=== PATIENT | female | born 1955 | race Caucasian/White ===

== ENCOUNTER 2017-01-13 14:56 | Day surgery (SDC) | payer BC ==
[2017-01-07 16:51] LABS: HEMATOCRIT 38.7 % (36.0-48.0); HEMOGLOBIN 12.8 g/dL (12.0-16.0)
[2017-01-07 17:11] LABS: BUN (BLOOD UREA NITROGEN) 16 MG/DL (6-23); CALCIUM, SERUM 8.9 MG/DL (8.5-10.4); CHLORIDE, SERUM 103 MMOL/L (96-112); CO2 (CARBON DIOXIDE) 29 MMOL/L (24-34); CREATININE 0.88 MG/DL (0.55-1.02); GFR AFRICAN AMERICAN 83 ML/MIN (>=60); GFR NON AFRICAN AMERICAN 72 ML/MIN (>=60); GLUCOSE, SERUM 92 MG/DL (60-99); POTASSIUM, SERUM 4.5 MMOL/L (3.5-5.3); SODIUM, SERUM 140 MMOL/L (135-148)
--- NOTE | ~2017-01-13 | OP ---
Record Of Operation [facility] [address] [place]. [address] NAME: DEMARIO BRADLEY : 59 STATUS : [facility] [place] PAT#: [id number] AGE: 61 ADM/REG DATE : 01/13/17 MR#: [id number] REPORT SERV DATE: 01/14/17 DICTATED BY: ANDRAE RODARTE DATE: 01/13/17 REPORT STATUS : Draft TRANSCRIBED BY: MODChetan DATE: 01/13/17 DATE OF PROCEDURE: 01/13/2017 SURGEON: Andrae Rodarte M.D. [employer] NEUROPSYCHOLOGIST: Alfonso. [employer]: Martha Smyth. PREPROCEDURE DIAGNOSIS: Fecal incontinence. POSTPROCEDURE DIAGNOSIS: Fecal incontinence. PROCEDURE: InterStim Percutaneous nerve stimulator. INDICATIONS: Gas, liquid, and solid stool. DESCRIPTION OF PROCEDURE: The patient was properly identified, placed in the prone position per OR protocol. General anesthesia was administered. Pillows were placed under the lower abdomen to flatten the sacrum and under the shins to allow the toes to dangle freely. The grounding pad with red lead was attached to the patient's heel on the patient's right side. The patient was prepped and draped in the usual sterile fashion using Hibiclens and ChloraPrep solution. The C-arm was draped and moved into the AP position to provide fluoroscopic mapping of the sacral region which included marking out of the midline of the sacrum, SI joints, sciatic notches, medial foraminal borders, and the sacral foramina. The C-arm was moved into the lateral position to image the sacrum. Sacral promontory to the coccyx. Local injection of a 1:1 mixture of 1% lidocaine and 0.25% Marcaine with epinephrine was administered. A 3.5 cm foramen needle was introduced approximately 2 cm above the sciatic notch and 2 cm lateral to the sacral midline filling for the foraminal margins until the S3 foramen was identified and penetrated on the right side. The depth of the needle was confirmed and adjusted fluoroscopically. Proper needle position was confirmed by a direct observation of lifting of the perineum or Héctor, and observation of plantar flexion of the great using the external test stimulator. This was also tried on the patient's right side. The best result was actually on the patient's left, so the foramen needle stylet was removed and a directional wire guide was placed confirmed fluoroscopically with the bead at the anterior plane of the sacral bone. The foramen needle was removed. An incision was made peripherally to the directional guidewire through the fascial layer. The lead introducer sheath with dilator was placed over the directional guidewire and directed into the foramen ensuring the radiopaque marker of the lead introducer, was not extended beyond the anterior edge of the sacrum. The dilator was unlocked and removed along with the directional guidewire. The lead was then placed through the introducer sheath past the first white marker, but not past the second. The position was checked fluoroscopically. The lead was then further introduced until three electrodes were visible below the sacrum. Each electrode was tested for location by and visualization of the Héctor and plantar flexion of the great toe. After satisfactory positioning was confirmed, the introducer sheath was retracted with the wire under continuous fluoro deploying the lead tines into the Record Of Operation [address] [place]. [address] NAME: DEMARIO BRADLEY : 59 STATUS : [facility] [place] PAT#: [id number] AGE: 61 ADM/REG DATE : 01/13/17 MR#: [id number] REPORT SERV DATE: 01/14/17 DICTATED BY: ANDRAE RODARTE DATE: 01/13/17 REPORT STATUS : Draft TRANSCRIBED BY: CHERYL DATE: 01/13/17 presacral tissue. A further incision was made into the subcu tissue posterior to the iliac crest and lateral to the sacrum. Blunt dissection was continued until the gluteal fascia was identified and hemostasis was achieved. A tunneling tool with straw was placed from the lead exit site subcutaneously to the incised pocket site. The tunneling tool was removed and the lead was fed through the straw and pulled out the pocket site. The lead was cleansed of bodily fluids, dried and a protective boot was placed over the lead. The lead was inserted into the temporary percutaneous extension and the metal bands were aligned. The four set screws were tightened with the hex wrench until two clicks were heard. The boot was pushed over the connection. Prolene ties were used to secure on the grooves on either side of the connection. A tunnel was made subcutaneously and exited to a puncture site above the ipsilateral buttock. The percutaneous extension was placed through the straw and exposed wand connected to the twist lock victoria cable by the [employer] [facility]. The wounds were irrigated with sterile water and antibiotic solution, closed with interrupted 3-0 Vicryl sutures, 4-0 Monocryl running subcu. Counts were correct. Mastisol, Steri-Strips, Telfa, and a Biopatch were placed over the incisions followed by Tegaderm. She tolerated the procedure well and her program will be set in recovery. The patient was transferred to PACU in satisfactory condition. DAMIAN/CHERYL Andrae Rodarte M.D. / [id number] CC: Paul Otto M.D.
[~2017-01-13 14:56] MED LIST: BIOTIN5 MG PO; D 5000 PO; DEPO-ESTRAD5 MG/1 ML IM; FISH-EPA1000 MG PO; MIRAFIBER PO; SINGULAIR1 PO; SYNTHROID137 MCG PO; WELLSR150 PO
[2017-01-22] MEDS ORDERED: NORCO1 TA1 PO (13:09)
== END 2017-01-13 23:59 | disposition home or self-care (01) ==
LOC: SDC 14:56
PROVIDERS: Surgery
PROC: 01HY3MZ Insertion of Neurostimulator Lead into Peripheral Nerve, Percutaneous Approach (ICD-10-PCS; 2017-01-13)
PROC: BW11YZZ Fluoroscopy of Abdomen and Pelvis using Other Contrast (ICD-10-PCS; 2017-01-13)
PROC: 0JH80BZ Insertion of Single Array Stimulator Generator into Abdomen Subcutaneous Tissue and Fascia, Open Approach (ICD-10-PCS; principal; 2017-01-13 16:30)
DX: R15.9 Full incontinence of feces (principal); J45.909 Unspecified asthma, uncomplicated; E03.9 Hypothyroidism, unspecified; E66.9 Obesity, unspecified; M19.90 Unspecified osteoarthritis, unspecified site; F41.9 Anxiety disorder, unspecified; F32.9 Major depressive disorder, single episode, unspecified; Z90.710 Acquired absence of both cervix and uterus; Z68.41 Body mass index [BMI] 40.0-44.9, adult; Z98.890 Other specified postprocedural states
CPT/HCPCS: 76000; 80048; 85014; 85018; 93005; A9270-GY; C1778; J0690; J2250; J2405; J2795; J3010; J3370

== ENCOUNTER 2017-01-27 11:16 | Day surgery (SDC) | payer BC ==
[2017-01-21 21:16] LABS: HEMATOCRIT 39.7 % (36.0-48.0); HEMOGLOBIN 13.1 g/dL (12.0-16.0)
[2017-01-21 21:34] LABS: BUN (BLOOD UREA NITROGEN) 13 MG/DL (6-23); CALCIUM, SERUM 8.7 MG/DL (8.5-10.4); CHLORIDE, SERUM 106 MMOL/L (96-112); CO2 (CARBON DIOXIDE) 29 MMOL/L (24-34); CREATININE 0.76 MG/DL (0.55-1.02); GFR AFRICAN AMERICAN 100 ML/MIN (>=60); GFR NON AFRICAN AMERICAN 86 ML/MIN (>=60); GLUCOSE, SERUM 84 MG/DL (60-99); POTASSIUM, SERUM 4.4 MMOL/L (3.5-5.3); SODIUM, SERUM 142 MMOL/L (135-148)
--- NOTE | ~2017-01-27 | OP ---
Record Of Operation [facility] [address] [place]. [address] NAME: DEMARIO BRADLEY : 59 STATUS : [facility]#: [id number] AGE: 61 ADM/REG DATE : 01/27/17 MR#: [id number] REPORT SERV DATE: 01/27/17 DICTATED BY: ANDRAE RODARTE DATE: 01/27/17 REPORT STATUS : Draft TRANSCRIBED BY: MODChetan DATE: 01/27/17 DATE OF PROCEDURE: 01/27/2017 INTERSTIM PERCUTANEOUS NERVE STIMULATOR STAGE II SURGEON: Andrae Rodarte M.D. The [employer]URING OPERATOR: La Nena Lawson. PREPROCEDURE DIAGNOSIS: Fecal incontinence. POSTPROCEDURE DIAGNOSIS: Fecal incontinence. INDICATIONS: Incontinence of gas, liquid, and solid stool and also urinary incontinence. PROCEDURE: InterStim percutaneous nerve stimulator stage II. DESCRIPTION OF PROCEDURE: The patient was properly identified and positioned in the right lateral position per OR protocol. Monitored anesthesia care was administered. She was prepped and draped in the usual sterile fashion using Hibiclens and ChloraPrep solution. Local injection of a 1:1 mixture of 1% lidocaine and 0.25% Sensorcaine with epinephrine was administered. The previous buttock pocket incision was opened using blunt dissection and the lead percutaneous extension connection was identified and elevated. The percutaneous extension was cut and removed from the field ensuring sterility. The subcutaneous pocket anterior to the muscle surface was enlarged and hemostasis was established. The sutures holding the protective boot were cut and the boot was retracted. The set of screws were exposed and loosened with a hex wrench. The boot was removed and discarded. The lead was cleansed of bodily fluid and dried. The lead was inserted into the header of the InterStim neurostimulator until the blue tip was visualized in the distal window and the single set screw was tightened until two clicks were heard. The neurostimulator was placed in the subcutaneous pocket with the etched identification side upwards and the excessive lead wrapped counterclockwise around the stimulator. The programming head was placed over the implanted neurostimulator in a sterile cover to ensure adequate lead connection and the parameters were within normal limits. Impedance was confirmed to be within normal limits, greater than 50, less than 4000. The wounds were irrigated with antibiotic solution, closed with interrupted subcutaneous 2-0 Vicryl sutures and 4-0 Monocryl running subcutaneous. Counts were correct. Mastisol, Steri-Strips, Telfa, and Tegaderm were placed over the incision and the patient tolerated the procedure well. Her program was conducted by the [facility] [employer] rep in the recovery room. She tolerated the procedure well. She was given instructions. DAMIAN/CHERYL Andrae Record Of Operation [facility] [address] [place]. [address] NAME: DEMARIO BRADLEY : 59 STATUS : [facility] PAT#: [id number] AGE: 61 ADM/REG DATE : 01/27/17 MR#: [id number] REPORT SERV DATE: 01/27/17 DICTATED BY: ANDRAE RODARTE DATE: 01/27/17 REPORT STATUS : Draft TRANSCRIBED BY: CHERYL DATE: 01/27/17 Paul Rodarte / [id number] CC: Paul Otto M.D. Jane Rohrer, M.D.
[~2017-01-27 11:16] MED LIST changes: +NORCO1 TA1 PO
== END 2017-01-27 15:58 | disposition home or self-care (01) ==
LOC: SDC 11:16
PROVIDERS: Surgery
PROC: 0JH70BZ Insertion of Single Array Stimulator Generator into Back Subcutaneous Tissue and Fascia, Open Approach (ICD-10-PCS; principal; 2017-01-27 12:45)
DX: R15.9 Full incontinence of feces (principal); R32 Unspecified urinary incontinence; E03.9 Hypothyroidism, unspecified; Z79.899 Other long term (current) drug therapy; Z79.891 Long term (current) use of opiate analgesic
CPT/HCPCS: 36415; 80048; 85014; 85018; 93005; A9270-GY; C1767; C1787; J0690; J1885; J2250; J2405; J2795; J3370